=== PATIENT | female | born 1975 | race Caucasian/White ===

== ENCOUNTER 2017-11-10 17:29 | Emergency (ER) | payer OTHER ==
[~2017-11-10] VITALS: Ht 157.5 cm; Wt 60.0 kg
[2017-11-10 17:31] VITALS: BP 111/63; PULSE 61; RESP 16; TEMP 98.6; O2SAT 100
[2017-11-10] MEDS ORDERED: LEXA10TA PO (17:43)
[2017-11-10] MEDS ORDERED: SODIUM CHLORIDE 0.9% FLUSH 10 ML FLUSH IVF PRN (17:45)
--- NOTE | 2017-11-10 17:54 | PD ---
HPI Chief Complaint: Chest Pain Time Seen by Provider: 17:37 Travel History International Travel<30 days: No Contact w/Intl Traveler<30days: No Traveled to known affect area: No History of Present Illness HPI 42 y/o female presents with central chest pain that started this morning. She states she's also felt a little bit nauseous and just doesn't feel right. She states she had a cold a couple days ago but that went away. She states she is traveling from [place] up to [place] today. She denies any other concurrent complaints. Quality is tightness. Severity is moderate. She denies any prior cardiac history. [facility] Past Medical History Medical History: Denies Significant Hx ?: Not LMP: 10/14/17 Past Surgical History Section: Yes Social History Alcohol Use: No Tobacco Use: No (no quit) Substance Use: No Allergies-Medications (Allergen,Severity, Reaction): Coded Allergies: No Known Allergies (Unverified , 11/10/17) Reported Meds & Prescriptions Reported Meds & Active Scripts Active Reported Lexapro (Escitalopram Oxalate) 10 Mg Tab 10 Mg PO DAILY Review of Systems Except as stated in HPI: all other systems reviewed are Neg Physical Exam Narrative GENERAL: Well-nourished, well-developed patient. well appearing SKIN: Warm and dry. HEAD: Normocephalic and atraumatic. EYES: No injection or drainage. ENT: No nasal drainage noted. NECK: Supple, trachea midline. CARDIOVASCULAR: Regular rate and rhythm RESPIRATORY: Breath sounds equal bilaterally. No accessory muscle use. GASTROINTESTINAL: Abdomen soft, non-tender, nondistended. EXTREMITIES: No edema. BACK: Nontender without obvious deformity. NEUROLOGICAL: Awake and alert. Motor and sensory grossly within normal limits. Normal speech. Data Data Last Documented VS Vital Signs Date Time Temp Pulse Resp B/P (MAP) Pulse Ox O2 Delivery O2 Flow Rate FiO2 11/10/17 17:31 98.6 61 16 111/63 (79) 100 Room Air Orders Orders Electrocardiogram (11/10/17 17:41) Ckmb (Isoenzyme) Profile (11/10/17 17:41) Complete Blood Count With Diff (11/10/17 17:41) Comprehensive Metabolic Panel (11/10/17 17:41) D-Dimer (11/10/17 17:41) Magnesium (Mg) (11/10/17 17:41) Prothrombin Time / Inr (Pt) (11/10/17 17:41) Act Partial Throm Time (Ptt) (11/10/17 17:41) Troponin I (11/10/17 17:41) Lipase (11/10/17 17:41) Chest, Single Ap (11/10/17 17:41) Ecg Monitoring (11/10/17 17:41) Bilateral Bp Monitoring (11/10/17 17:41) Iv Access Insert/Monitor (11/10/17 17:41) Oximetry (11/10/17 17:41) Sodium Chloride 0.9% Flush (Ns Flush) (11/10/17 17:45) Ondansetron Inj (Zofran Inj) (11/10/17 18:45) Labs Laboratory Tests Test 11/10/17 17:50 White Blood Count 7.8 TH/MM3 Red Blood Count 4.11 MIL/MM3 Hemoglobin 12.3 GM/DL Hematocrit 35.5 % Mean Corpuscular Volume 86.4 FL Mean Corpuscular Hemoglobin 29.9 PG Mean Corpuscular Hemoglobin Concent 34.6 % Red Cell Distribution Width 13.0 % Platelet Count 252 TH/MM3 Mean Platelet Volume 7.6 FL Neutrophils (%) (Auto) 65.2 % Lymphocytes (%) (Auto) 25.1 % Monocytes (%) (Auto) 8.1 % Eosinophils (%) (Auto) 1.1 % Basophils (%) (Auto) 0.5 % Neutrophils # (Auto) 5.1 TH/MM3 Lymphocytes # (Auto) 2.0 TH/MM3 Monocytes # (Auto) 0.6 TH/MM3 Eosinophils # (Auto) 0.1 TH/MM3 Basophils # (Auto) 0.0 TH/MM3 CBC Comment DIFF FINAL Differential Comment Prothrombin Time 10.1 SEC Prothromb Time International Ratio 1.0 RATIO Activated Partial Thromboplast Time 28.0 SEC D-Dimer Quantitative (PE/DVT) 0.29 MG/L FEU Blood Urea Nitrogen 17 MG/DL Creatinine 0.55 MG/DL Random Glucose 79 MG/DL Total Protein 7.4 GM/DL Albumin 3.9 GM/DL Calcium Level 8.0 MG/DL Magnesium Level 2.0 MG/DL Alkaline Phosphatase 68 U/L Aspartate Amino Transf (AST/SGOT) 19 U/L Alanine Aminotransferase (ALT/SGPT) 22 U/L Total Bilirubin 0.2 MG/DL Sodium Level 141 MEQ/L Potassium Level 3.6 MEQ/L Chloride Level 109 MEQ/L Carbon Dioxide Level 27.5 MEQ/L Anion Gap 5 MEQ/L Estimat Glomerular Filtration Rate 120 ML/MIN Total Creatine Kinase 63 U/L Troponin I LESS THAN 0.02 NG/ML Lipase 109 U/L MDM Medical Decision Making Medical Screen Exam Complete: Yes Emergency Medical Condition: Yes Medical Record Reviewed: Yes (pmh confirmed) Interpretation(s) EKG shows sinus rhythm at 60, T wave inversion V2 CBC & BMP Diagram 11/10/17 17:50 Total Protein 7.4, Albumin 3.9, Calcium Level 8.0 L, Magnesium Level 2.0, Alkaline Phosphatase 68, Aspartate Amino Transf (AST/SGOT) 19, Alanine Aminotransferase (ALT/SGPT) 22, Total Bilirubin 0.2 cxr discussed with radiologist no acute Differential Diagnosis Gastritis, musculoskeletal, PE, atypical cardiac Narrative Course will check labs, cxr and reeval labs wnl, advised qm consultant observation, patient states needs to leave, will sign ama , AMA: The risks of leaving against medical advice without further evaluation treatment were discussed with the patient. These risks include cardiac dysfunction, cardiac dysrhythmia, possible heart attack, possible stroke or . The patient indicated understanding of these risks and appeared to have the capacity to make this decision. Diagnosis Primary Impression: Chest pain Qualified Codes: R07.9 - Chest pain, unspecified Additional Impression: Nausea Patient Instructions: General Instructions Additional Instructions: return as needed, tylenol as needed, follow with primary saturday Med/Other Pt SpecificInfo: No Change to Meds Disposition: 07 AGAINST MEDICAL ADVICE Condition: Stable Eden King MD Nov 10, 2017 17:54
[2017-11-10 18:13] LABS: AUTOMATED NEUTROPHIL # 5.1 TH/MM3 (1.8-7.7); BASOPHIL % 0.5 % (0.0-2.0); EOSINOPHIL # 0.1 TH/MM3 (0-0.4); EOSINOPHIL % 1.1 % (0.0-4.0); HEMATOCRIT 35.5 % (35.0-46.0); HEMOGLOBIN 12.3 GM/DL (11.6-15.3); LYMPH % 25.1 % (9.0-44.0); MEAN CELL VOLUME 86.4 FL (80.0-100.0); MEAN CORPUSCULAR HEMOGLOBIN 29.9 PG (27.0-34.0); MEAN CORPUSCULAR HGB CONC 34.6 % (32.0-36.0); MEAN PLATELET VOLUME 7.6 FL (7.0-11.0); MONO % 8.1 % (0.0-8.0); MONOCYTE # 0.6 TH/MM3 (0-0.9); NEUT % 65.2 % (16.0-70.0); PLATELET COUNT 252 TH/MM3 (150-450); RED BLOOD COUNT 4.11 MIL/MM3 (4.00-5.30); WHITE BLOOD COUNT 7.8 TH/MM3 (4.0-11.0)
[2017-11-10 18:25] LABS: D-DIMER 0.29 MG/L FEU (0.00-0.50); PROTHROMBIN TIME - PATIENT 10.1 SEC (9.8-11.6)
[2017-11-10 18:30] LABS: ALBUMIN 3.9 GM/DL (3.4-5.0); ALT (GPT) 22 U/L (10-53); AST (GOT) 19 U/L (15-37); BICARBONATE 27.5 MEQ/L (21.0-32.0); BLOOD UREA NITROGEN 17 MG/DL (7-18); CHLORIDE 109 MEQ/L (98-107); CREATININE 0.55 MG/DL (0.50-1.00); GLOMERULAR FILTRATION RATE 120 ML/MIN (>89); GLUCOSE,RANDOM 79 MG/DL (74-106); LIPASE 109 U/L (73-393); SODIUM (NA) 141 MEQ/L (136-145)
[2017-11-10 18:35] LABS: ALKALINE PHOSPHATASE 68 U/L (45-117); TOTAL BILIRUBIN ADULT 0.2 MG/DL (0.2-1.0); TOTAL PROTEIN 7.4 GM/DL (6.4-8.2); TROPONIN I LESS THAN 0.02 NG/ML (0.02-0.05)
[2017-11-10] MEDS ORDERED: ONDANSETRON HCL 4 MG/2 ML VIAL IV PUSH ONE (18:45)
--- NOTE | 2017-11-10 18:53 | RADRPT ---
EXAM DATE/TIME: 11/10/2017 18:19 [facility] COMPARISON: No previous studies available for comparison. INDICATIONS : Congestion and chest pressure MEDICAL HISTORY : None. SURGICAL HISTORY : Breast Augmentation ENCOUNTER: Initial ACUITY: 1 day PAIN SCORE: 0/10 LOCATION: Bilateral chest FINDINGS: The lungs are clear without infiltrate, nodule, or mass. There is no appreciable pleural effusion fo r technique. Heart and mediastinum are unremarkable. CONCLUSION: No acute cardiopulmonary disease. Marie Stuart MD on November 10, 2017 at 18:51 Board Certified Radiologist. This report was verified electronically.
--- NOTE | 2017-11-10 21:52 | EKG ---
Date Performed: 11/10/2017 Time Performed: 17:51:58 PTAGE: 42 years EKG: Sinus rhythm NONSPECIFIC T-WAVE ABNORMALITY BORDERLINE ECG NO PREVIOUS TRACING DOCTOR: René Sotelo Interpretating Date/Time 11/10/2017 21:51:24
== END 2017-11-10 19:11 | disposition left against medical advice (07) ==
LOC: NEPC 17:29
DX: R07.9 Chest pain, unspecified (principal); R11.0 Nausea; R94.31 Abnormal electrocardiogram [ECG] [EKG]; Z79.899 Other long term (current) drug therapy
CPT/HCPCS: 71010; 80053; 82550; 83690; 83735; 84484; 85025; 85379; 85610; 85730; 93005; 96374; 99285; J2405